=== PATIENT | female | born 1990 | race Caucasian/White ===

== ENCOUNTER 2016-08-22 16:46 | Emergency (ER) | payer BC ==
[~2016-08-22] VITALS: Wt 154.0 kg
--- NOTE | 2016-08-22 18:24 | ERD ---
ER Documentation Chief Complaint Date/Time DATE: 08/22/16 TIME: 18:19 Chief Complaint RIGHT CALF AREA PAIN FOR A FEW DAYS. NO CP OR SOB . SENT BY PMD FOR R/O DVT HPI Patient is a 26-year-old female who presents to the ED with right calf pain. She states that she was sent here from her primary care doctor Dr. Dayne Mendieta who sent her here for ultrasound. She states that she was sitting down cross ligated on Thursday and as she got up she developed pain in her right calf. She states that she had numbness and tingling on the outside and slight numbness. She states that she went to the ER on thursday and was discharged with ibuprofen. She states that the ibuprofen and ice helped with her symptoms, however she still has calf pain. She saw Dr. Mendieta today who sent her here. She states that her pain, numbness, tingling is better but she still feels sore in her calf. She denies trauma. She denies unilateral leg swelling or redness. She denies fever or chills. She denies chest pain, SOB or difficulty breathing. She states that she traveled to [place] in June. No recent surgeries and no use of OCPs. She denies abdominal pain, nausea, vomiting or diarrhea. No other symptoms. ROS All systems reviewed and are negative except as per history of present illness. Medications Home Meds Active Scripts Ibuprofen* (Motrin*) 600 Mg Tab, 600 MG PO Q6, #30 TAB Prov:WASHINGTON OATES PA-C 08/22/16 PMhx/Soc History of Surgery: No Anesthesia Reaction: No Hx Neurological Disorder: No Hx Respiratory Disorders: No Hx Cardiac Disorders: No Hx Psychiatric Problems: No Hx Miscellaneous Medical Probl: Yes (anemia) Hx Alcohol Use: Yes (socially 2 beers/week) Hx Substance Use: No Hx Tobacco Use: Yes (1 pack/week) Smoking Status: Current every day smoker Physical Exam Vitals Vital Signs Date Time Temp Pulse Resp B/P Pulse Ox O2 Delivery O2 Flow Rate FiO2 08/22/16 16:47 98.3 74 20 141/65 98 Physical Exam GENERAL: Well-developed, well-nourished female. Appears in no acute distress. HEAD: Normocephalic, atraumatic. EYES: Pupils are equally reactive bilaterally. EOMs grossly intact. No conjunctival erythema. ENT: Moist mucous membranes. No uvula deviation. No kissing tonsils. No exudates. NECK: Supple. No lymphadenopathy or thyromegaly. No meningismus. negative kernig. negative brudinski. LUNG: Clear to auscultation bilaterally. No rhonchi, wheezing, rales or coarse breath sounds. HEART: Regular rate and rhythm. No murmurs, rubs or gallops. BACK: No midline tenderness. Extremities: Equal pulses bilaterally. No peripheral clubbing, cyanosis or edema. No unilateral leg swelling. negative angel sign. NEUROLOGIC: Alert and oriented. Moving all four extremities. 5/5 strength in all extremities. Normal speech. Steady gait. SKIN: Normal color. Warm and dry. No rashes or lesions. Capillary refill < 2 seconds Procedures/MDM ER COURSE: I kept the patient and/or family informed of laboratory and diagnostic imaging results throughout the emergency room course. EKG, MONITORS, & DIAGNOSTIC IMAGING: [place] [id number] Radiology Main Line: [phone] DIAGNOSTIC IMAGING REPORT Patient: SINDHU AMANDA : 1990 Age: 26 Sex: F MR #: [id number] DOS: 08/22/16 1721 Ordering MD: WASHINGTON OATES PA-C Location: [facility] Room/Bed: PROCEDURE: US DVT. CLINICAL INDICATION: Right calf pain TECHNIQUE: Multiple longitudinal and transverse images of the right lower extremity veins were obtained with sandoval scale and color Doppler imaging. 2D grayscale measurements with compression, color Doppler flow, and augmentation was performed. The calf veins were interrogated as well. COMPARISON: No prior studies are available for comparison. FINDINGS: The right common femoral, superficial femoral and popliteal veins are normally compressible throughout. Color flow demonstrates normal filling of the vessel. Normal waveforms are visualized and there is normal response to augmentation. The calf veins are visualized and are equally unremarkable. RPTAT: VIDA IMPRESSION: 1. No evidence of a deep vein thrombosis. .Beverlylauri Paige MD, MD Date Time Electronically viewed and signed by .Beverly Paige MD, MD on 08/22/2016 18: 36 .T/ CC: WASHINGTON OATES PA-C MEDICAL DECISION MAKING: This is a 26-year-old who presents with right calf pain. Vital signs were reviewed. Patient is afebrile. Patient is not hypoxic. Patient is not toxic or ill-appearing. Patient likely has a calf strain. Low suspicion for dislocation , fracture, septic joint, compartment syndrome, osteomyelitis, avascular necrosis, DVT, Achilles tendon rupture, cellulitis. At this time, unable to rule out any tendon and ligament injuries. Low suspicion for ACS, PE, AAA, dissection, DVT. 1 point, low risk group for DVT according to well's criteria. Patient does not have active cancer, no bedridden or major surgery, no calf swelling,, no pitting edema no paralysis paresis. I do not think further testing needs to be done. DISCHARGE: At this time, patient is stable for discharge and outpatient management with no new complaints during the ER course. Patient was sent home with ibuprofen. Patient will be discharged home with instructions to recheck for new or worsening symptoms such as fever, nausea, weakness, LOC and to follow up with primary care in the next 1-2 days. Patient was advised to return to the ER for any new or worsening symptoms. Plan was discussed and patient and/or family understands and agrees. Home instructions were given. WASHINGTON OATES PA-C Aug 22, 2016 18:24
--- NOTE | 2016-08-22 18:36 | RADRPT ---
PROCEDURE: US DVT. CLINICAL INDICATION: Right calf pain TECHNIQUE: Multiple longitudinal and transverse images of the right lower extremity veins were obt ained with asndoval scale and color Doppler imaging. 2D grayscale measurements with compression, color Doppler flow, and augmentation was performed. The calf veins were interrogated as well. COMPARISON: No prior studies are available for comparison. FINDINGS: The right common femoral, superficial femoral and popliteal veins are normally compressible througho ut. Color flow demonstrates normal filling of the vessel. Normal waveforms are visualized and ther e is normal response to augmentation. The calf veins are visualized and are equally unremarkable. RPTAT: ZZ IMPRESSION: 1. No evidence of a deep vein thrombosis. .Beverly Paige MD, MD Date Time Electronically viewed and signed by .Beverly Paige MD, on 08/22/2016 18:36 .T/
[2016-08-22] MEDS ORDERED: IBUP-1542 PO (18:57)
[2016-08-22 19:04] VITALS: BP 148/76; PULSE 89; RESP 18; TEMP 98.3
== END 2016-08-22 19:05 | disposition home or self-care (01) ==
LOC: FTE 16:46
DX: M79.661 Pain in right lower leg (principal); F17.210 Nicotine dependence, cigarettes, uncomplicated
CPT/HCPCS: 93971